=== PATIENT | female | born 1975 | race Caucasian/White ===

== ENCOUNTER → 2017-02-19 | Outpatient (CLI) | payer OTHER ==
[~2017-02-19] MED LIST: IBUP-1050 PO; PRENTAB26 PO
--- NOTE | 2017-02-19 13:48 | MAMMOGRAPHY REPORT ---
BILATERAL DIGITAL DIAGNOSTIC MAMMOGRAM TOMOSYNTHESIS WITH CAD AND TARGETED BILATERAL ULTRASOUND: 02/19 CLINICAL HISTORY: The patient reports she has had a lump in the right breast for some time, which typ ically enlarges and becomes more tender before her period and then decreases in size after her period . For the last 5-6 weeks the lump has stayed enlarged and tender. Today, the lump and tenderness see s subsided and the lump feels back to its baseline size. TECHNIQUE: Breast tomosynthesis in addition to standard 2D mammography was performed. Current study was also evaluated with a Computer Aided Detection (CAD) system. Bilateral CC and MLO and left ML 2- D and tomosynthesis images were obtained. COMPARISON: Comparison is made to exams dated: 10/16/2015 mammogram, 10/16/2015 ultrasound, 10/30/2013 u ltrasound, 10/30/2013 mammogram - [facility], 12/19/2008, and 05/04/2007. BREAST COMPOSITION: The tissue of both breasts is heterogeneously dense, which may obscure small mas ses. FINDINGS: A triangle marker ojeda the site of the tender palpable lump in the right anterior 9:00 br east. There are no suspicious masses or other suspicious abnormalities in this region mammographical ly. There is a 19 mm asymmetry seen within the left inferior breast on the MLO view which effaces on the ML view and has the appearance of normal fibroglandular tissue on the tomosynthesis images. The remainder of both breasts are stable compared to prior exams, without suspicious masses, calcificati ons, or areas of architectural distortion noted. Scattered bilateral benign-appearing calcifications are not significantly changed. Targeted ultrasound was performed of the area of the tender palpable lump pointed out by the patient, in the right 9:00 periareolar breast. Sonographically normal tissue is seen in this region, without evidence of a mass or other suspicious sonographic abnormality. Targeted ultrasound was also perform ed of the left inferior breast in the region of the effacing mammographic asymmetry. No suspicious m asses or other suspicious sonographic abnormalities are evident. Incidentally noted in the left 7 to 8:00 breast, 2 cm from the nipple, is an oval anechoic benign simple cyst which measures 9 x 2 x 5 m m. IMPRESSION: ACR BI-RADS CATEGORY 2: BENIGN, TARGETED ULTRASOUND ACR BI-RADS CATEGORY 2: BENIGN 1. No suspicious mammographic or sonographic abnormality at the site of the fluctuating tender palpa ble lump in the right 9:00 periareolar breast. Recommend clinical follow-up. 2. Left inferior breast asymmetry, which effaces on the additional view without a corresponding susp icious sonographic abnormality evident. The asymmetry is benign and compatible with normal fibroglan dular tissue. There is no mammographic or targeted sonographic evidence of malignancy. A 1 year screening mammogram is recommended. The patient has been verbally notified of the results. Approximately 10% of breast cancers are not detected with mammography. A negative mammographic report should not delay biopsy if a clinically suggestive mass is present. Tiesha Lan M.D. ah/:02/19/2017 10:30:14 Screen Maker: Hira MULLEN(R)(Leonie), [facility] letter sent: Normal 1/2 BI-RADS Code: ACR BI-RADS Category 2: Benign Ultrasound BI-RADS: ACR BI-RADS Category 2: Benign
== END | disposition home or self-care (01) ==
LOC: C.MAMM 09:06
PROVIDERS: ATTEND Physician Assistant
DX: N63 Unspecified lump in breast (principal); N64.89 Other specified disorders of breast

== ENCOUNTER → 2017-08-02 | Outpatient (CLI) | payer OTHER | END | disposition home or self-care (01) | LOC: C.PAPS 18:19 | PROVIDERS: ATTEND Obstetrics & Gynecology | DX: Z12.4 Encounter for screening for malignant neoplasm of cervix (principal) ==